=== PATIENT | female | born 1990 | race Caucasian/White ===

== ENCOUNTER 2024-12-27 10:23 | Emergency (ER) | payer OTHER, SELFPAY ==
--- NOTE | 2024-12-27 10:32 | ED.SKABFB ---
HPI - Skin/Abscess/Foreign Bdy General Chief complaint: Skin/Abscess/Foreign Body Stated complaint: RASH Time Seen by Provider: 12/27/24 10:47 Source: patient, RN notes reviewed and old records reviewed Mode of arrival: ambulatory Limitations: no limitations History of Present Illness HPI narrative: 34-year-old female presents to the [facility] with concerns for a rash around her waist, has spread to the left volar aspect forearm. Patient states that it started on Sunday, 4 days ago. Was on vacation, swim in like [place]. Believed it was 1st a heat rash. Has been taken [id number] medication. Onset (ago): day(s) (4) Treatments prior to arrival: OTC topical medication Related Data Allergies Allergy/AdvReac Type Severity Reaction Status Date / Time No Known Allergies Allergy Verified 12/27/24 10:31 Review of Systems Review of Systems: All systems reviewed & are unremarkable except as noted in HPI and below Constitutional: Constitutional: Reports no additional constitutional complaints ENT: Reports system reviewed and no additional complaints, except as documented Musculoskeletal: Musculoskeletal: Reports no additional musculoskeletal complaints Integumentary/Breasts: Skin/Breast: Reports as per HPI and Reports rash PMFSH Comments At the time of my signature, I reviewed and agree with the nursing past medical, surgical, social, and family history. There is no relevant family history pertinent to the patient complaint. Exam Const: General: cooperative, healthy appearing, comfortable, no acute distress, well developed, alert and well nourished Nutritional Appearance: well nourished Orientation/consciousness: patient oriented x3 Limitations: no limitations HENMT: Head: normal to inspection Ears: hearing grossly normal bilaterally Mouth: Yes Normal oral and palatal mucosa present, Yes lip normal, Yes tongue normal and Yes moist mucous membranes Eyes: General: appearance normal, both eyes and all related structures Alignment and Position: alignment normal Neck: Neck: normal visual inspection, full ROM, no lymphadenopathy and no meningeal signs Chest: Chest palpation & inspection: normal inspection of the chest Resp: Effort & Inspection: normal respiratory effort and able to speak in complete sentences Auscultation: clear to auscultation bilaterally, no crackles, no rales, no rhonchi and no wheezes Cardio: Rate: regular rate Skin: General skin exam: normal color and no rashes or lesions noted Rashes: rashes noted Other: Light pink rash, irregular-shaped in the waist band, circumferential waist. Circular areas to the patchy, light pink. No raised area. No cellulitic changes. Neuro: General: patient oriented x3, gait normal, moves all extremities and no meningeal signs Cognition (Neuro): normal cognition Speech: normal speech Gait exam (Neuro): Normal gait present Extrem: General: normal to inspection, full ROM, capillary refill normal and normal gait Psych: Appearance: grossly normal and well kempt Mental Status: mental status grossly normal Speech and movement: Normal speech and movement present and Clear speech present Affect: normal affect Attitude: cooperative Course Course Level of Care: Express Care Visit Vital Signs Vital signs: Vital Signs Temperature 98.1 F 12/27/24 10:33 Pulse Rate 89 12/27/24 10:33 Respiratory Rate 16 12/27/24 10:33 Blood Pressure 129/99 H 12/27/24 10:33 Pulse Oximetry 98 12/27/24 10:33 Oxygen Delivery Room Air 12/27/24 10:33 Temperature 98.1 F 12/27/24 10:33 Pulse Rate 89 12/27/24 10:33 Respiratory Rate 16 12/27/24 10:33 Blood Pressure 129/99 H 12/27/24 10:33 Pulse Oximetry 98 12/27/24 10:33 Oxygen Delivery Room Air 12/27/24 10:33 Reviewed MDM - Skin/Abscess/Foreign Bdy MDM Narrative Medical decision making narrative: Patient sitting in exam room. Patient is nontoxic, vitals are stable. Patient presents with itchy irritating rash for 4 days. Has tried or cortisone. Patient exam consistent with a probable fungal rash. Will prescribe oral antifungals, steroid an fungal cream. Patient appropriate for outpatient treatment. Discussed following up with Dermatology if no improvement. Discharge instructions reviewed with patient, as well as provided in writing per nursing staff. The instructions also include specific and strict return/GO TO THE ER as well as f/u information. All questions have been answered, and the patient deny any further questions with discharge and discharge plan. Some parts of this dictation were generated by voice recognition software and may contain typographical and/or grammatical inaccuracies. Differential Diagnosis Differential diagnosis: Likely abscess of skin or subcutaneous tissue, viral exanthem, urticaria, cellulitis, eczema, insect bites, impetigo and contact dermatitis Critical Care Time Critical Care Time Critical Care Time: No Discharge Plan Discharge Clinical Impression: Rash Patient Disposition: Home Condition: Stable Instructions: Antibiotic Form, Acute Rash (ED) Additional Instructions: [facility] [phone] [address] Follow-up with primary care provider New or worsening symptoms go directly to the emergency Patient Language: Welsh Prescriptions: New triamcinolone acetonide 0.1 % cream 1 applic topical BID Qty: 80 0RF clotrimazole 1 % cream 1 applic topical BID Qty: 45 0RF fluconazole 150 mg tablet 150 mg PO DAILY Qty: 2 0RF Rx Instructions: Take 1 tablet today, repeat in 72 hours Follow-up/Referrals: Love,Ann [Other] - 1 Week ([facility] care follow up) Time of Disposition: 11:08
[2024-12-27 10:33] VITALS: BP 129/99; PULSE 89; RESP 16; TEMP 36.7; O2SAT 98
== END 2024-12-27 11:15 | disposition home or self-care (01) ==
PROVIDERS: Emergency Provider Nurse Practitioner
DX: R21 Rash and other nonspecific skin eruption (principal)
CPT/HCPCS: 99213; G0463